=== PATIENT | male | born 1945 | race American Indian/Alaskan Native ===

== ENCOUNTER 2020-03-21 12:12 | Day surgery (SDC) | payer MEDICARE ==
[2020-03-19 10:16] LABS: Hematocrit 37.2 % (35.5-45.6); Mean Corpuscular HGB Conc 32 % (32-34); Mean Corpuscular Volume 79 fl (84-94); Platelet Count 216 K/mm3 (140-440); Red Blood Count 4.71 M/mm3 (3.65-5.03); Red Cell Distribution Width 17.7 % (13.2-15.2)
[2020-03-19 10:34] LABS: Alanine Aminotransferase 11 units/L (7-56); BUN/Creatinine Ratio 14; Blood Urea Nitrogen 13 mg/dL (9-20); Calcium 9.8 mg/dL (8.4-10.2); Hemolysis Index 4
[~2020-03-21 12:12] MED LIST: SODIUM CHLORIDE 0.9% IRRIG SOLN 2000 ML IR ONE; WATER FOR IRRIG STERILE 1,500 ML BOTTLE IR ONE
[2020-03-21] MEDS ORDERED: ONDANSETRON 4 MG/2 ML INJ IV PRN (12:53)
[2020-03-21] MEDS ORDERED: HYDROmorphone 1 MG/1 ML INJ IV PRN ×2 (12:53)
--- NOTE | 2020-03-21 12:58 | Anesthesia Day of Surgery ---
Anesthesia Day of Surgery - Day of Surgery Patient Examined: Yes Patient H&P Reviewed: Yes Patient is NPO: Yes
--- NOTE | 2020-03-21 12:59 | Anesthesia Consultation ---
Anesthesia Consult and Med Hx Date of service: 03/21/20 - Airway Anesthetic Teeth Evaluation: Good ROM Head & Neck: Adequate Mental/Hyoid Distance: Adequate Mallampati Class: Class III Intubation Access Assessment: Probably Good - Pre-Operative Health Status ASA Pre-Surgery Classification: ASA3 Proposed Anesthetic Plan: General - Pulmonary Hx Smoking: No Hx Sleep Apnea: No ([place] PRE SCREEN HIGH RISK) - Cardiovascular System Hx Hypertension: Yes (X 6 YRS) - Central Nervous System Hx Neuromuscular Disorder: Yes (Gout is bothering him and limiting activity) Hx Psychiatric Problems: No - Gastrointestinal Hx Gastroesophageal Reflux Disease: No - Endocrine Hx Non-Insulin Dependent Diabetes: Yes - Hematic Hx Anemia: No Hx Sickle Cell Disease: No - Other Systems Hx Cancer: Yes Hx Obesity: Yes
[2020-03-21] MEDS ORDERED: LACTATED RINGERS 1,000 ML IV SCH (13:00)
[2020-03-21] MEDS ORDERED: hydrALAZINE 25 MG TAB PO ONE (13:30)
[2020-03-21] MEDS ORDERED: amLODIPine 10 MG TAB PO ONE (13:59)
[2020-03-21] MEDS ORDERED: ceFAZolin/Water 2 GM/20 ML 2 GM/20 ML SYRINGE IV ONE (14:47)
[2020-03-21] MEDS ORDERED: ceFAZolin/STERILE WATER 2 GM/20 ML SYRINGE IV NR (15:00)
[2020-03-21] MEDS ORDERED: SODIUM CHLORIDE 0.9% 1000 ML 1,000 ML ONE (15:03)
--- NOTE | 2020-03-21 15:08 | Post Operative Note ---
Date of procedure: 03/21/20 Pre-op diagnosis: cap Post-op diagnosis: same Findings: small gland Procedure: cyst cryo prostate Anesthesia: GETA Surgeon: PRIYANKA IZAGUIRRE Estimated blood loss: minimal Pathology: none Condition: stable Disposition: PACU
--- NOTE | 2020-03-21 15:09 | Discharge Summary ---
Short Stay Discharge Plan Activity: other (no straining ) Weight Bearing Status: Full Weight Bearing Diet: low fat, low cholesterol, low salt Wound: open to air Special Instructions: other (ice in rr and 24 hrs ) Durable Medical Equipment Needed Upon Discharge: other (teach [facility]erson care ) Follow up with: KAYLA BALBUENA MD [Primary Care Provider] - 7 Days PRIYANKA IZAGUIRRE MD [Staff Physician] - 7 Days
[2020-03-21] MEDS ORDERED: fentaNYL 100 MCG/2 ML INJ ONE (15:16)
[2020-03-21] MEDS ORDERED: dexAMETHasone 20 MG/5 ML VIAL ONE (15:18)
[2020-03-21] MEDS ORDERED: propofoL 200 MG/20 ML VIAL IV ONE (15:18)
[2020-03-21] MEDS ORDERED: PHENYLEPHRINE/NS 1,000 MCG/10 ML SYRINGE (OR USE) IV ONE (15:18)
[2020-03-21] MEDS ORDERED: NEOSTIGMINE 10MG/10 ML INJ MDV ONE (15:18)
[2020-03-21] MEDS ORDERED: GLYCOPYRROLATE 0.4 MG/2 ML INJ ONE (15:18)
[2020-03-21] MEDS ORDERED: ONDANSETRON 4 MG/2 ML INJ ONE (15:18)
[2020-03-21] MEDS ORDERED: LIDOCAINE MPF (2%) 20 MG/1 ML VIAL 5 ML ONE (15:19)
[2020-03-21] MEDS ORDERED: ROCURONIUM 50 MG/5 ML INJ IV ONE (15:30)
[2020-03-21] MEDS ORDERED: SUCCINYLCHOLINE CHLORIDE 200 MG/10 ML INJ MDV ONE (15:30)
[2020-03-21] MEDS ORDERED: HYDROmorphone 1 MG/1 ML INJ ONE (15:38)
[2020-03-21 18:02] VITALS: BP 143/60
--- NOTE | 2020-03-21 18:15 | Post Anesthesia Evaluation ---
- Post Anesthesia Evaluation Patient Participated: Yes Airway Patent: Yes Stable Respiratory Function: Yes Nausea/Vomiting: No Temp > 96.8F: Yes Pain Manageable: Yes Adequeate Hydration: Yes Anesthesia Complications: No Block Receding Appropriately: Not Applicable Patient on Ventilator: No
--- NOTE | 2020-03-22 00:17 | Operative Report ---
PREOPERATIVE DIAGNOSIS: Adenocarcinoma of the prostate, recurrent. POSTOPERATIVE DIAGNOSIS: Adenocarcinoma of the prostate, recurrent with Danny 4. PROCEDURE: Cystoscopy, cryoablation of prostate. SURGEON: Dr. Burks. ANESTHESIA: General. FINDINGS: This is a gentleman with significant prostate cancer recurrence. He now presents for treatment. Prostate approximately 20 grams. DESCRIPTION OF PROCEDURE: The patient was brought to the operating room and placed on the operating table. Following induction of anesthesia, placed in lithotomy position, prepped and draped in usual sterile fashion. The ultrasound showed good visualization, but significant treatment changes as well. We worked around, the Lopez catheter was placed. Scrotum was elevated and needles 1 and 2 were placed after we had a good measurement. Then, needles, 5 and 6 and then Denonvilliers was placed, a little more to the right, even though it was done through the midline. The sphincter probe, temperature probe was also placed and then probes 3 and 4. Excellent visualization was achieved. The patient tolerated the procedure well. The first freeze after we rechecked was carried out and after we placed a warmer under cystoscopic guidance, we placed the wire and the warmer was placed. The patient tolerated the procedure well. Excellent freeze was carried out. We took some nice pictures and then a thaw and then a second freeze. The patient tolerated the procedure well. Catheter was placed after the second thaw and the warmer was left in for approximately 15 minutes, was brought to recovery room with Lopez catheter in stable condition. JOB# [id number] KELL/JULIA
== END 2020-03-21 18:40 | disposition home or self-care (01) ==
LOC: OR 12:12
PROVIDERS: ATTEND Urology
DX: C61 Malignant neoplasm of prostate (principal); I10 Essential (primary) hypertension; E66.9 Obesity, unspecified; Z20.828 Contact with and (suspected) exposure to other viral communicable diseases; E11.9 Type 2 diabetes mellitus without complications; Z79.899 Other long term (current) drug therapy; Z79.84 Long term (current) use of oral hypoglycemic drugs; Z98.890 Other specified postprocedural states; Z68.41 Body mass index [BMI] 40.0-44.9, adult
CPT/HCPCS: 36415; 55873; 80053; 82962; 85027; A4217; C2618; J0690; J1100; J1170; J2370; J2405; J2704; J2710; J3010; J7030; J7120; U0003; J0330